=== PATIENT | male | born 1975 | race African-American/Black ===

== ENCOUNTER 2021-10-27 18:04 | Inpatient (IN) | payer BC ==
[~2021-10-27] VITALS: Ht 175.3 cm; Wt 129.3 kg
[2021-10-27 18:26] VITALS: BP 184/123
[2021-10-27] MEDS ORDERED: CARV25TA PO (18:52)
[2021-10-27] MEDS ORDERED: METF500T17 PO (18:52)
[2021-10-27] MEDS ORDERED: VALS320T2 PO (18:52)
[2021-10-27] MEDS ORDERED: COREG PO SCH ×2 (19:00→21:00)
--- NOTE | 2021-10-27 19:19 | PCM.HP ---
History of Present Illness Reason for Visit: (1) Hypertensive emergency ICD Code: I16.1 - Hypertensive emergency SNOMED: 130841731283883 Hx of Present Illness Julián is a very pleasant 46-year-old gentleman who presented today with headache which upon evaluation in outside ER was found to be secondary to hypertensive emergency. The patient's blood pressure fell after administration of IV hydralazine and labetalol, and the patient was started on Heparin drip based upon minute elevation in his troponin. He was transferred here for ongoing management whereupon interview revealed that the patient had been out of his usual Coreg 25 and valsartan 320 for several weeks the likely explanation for the patient's hypertension. He reported that prior to running out he had been compliant with all medications and had felt well until the last 24 hours prior to his presentation at the outside ER. At the time of my interview, the patient is resting comfortably, and reports that his headache is gone, and also states that he has never had shortness of breath or chest pain during this entire ordeal. Review of Systems Other Complete review of systems is negative except as per HPI Scheduled Carvedilol 25MG (Coreg 25MG), 25 MG PO DAILY24, (Reported) Metformin Hcl (Metformin Hcl), 1 TAB PO BID, (Reported) Valsartan (Diovan), 320 MG PO DAILY24, (Reported) VTE VTE Risk Score VTE Risk: Score 0-1 = Low Risk (Aggressive mobilization; early ambulation; no VTE prophylaxis required) Score 2: Moderate Risk (Intermittent/Pneumatic Compression Device OR Lovenox/Heparin/Coumadin) Score 3-4: High Risk (Intermittent/Pneumatic Compression Device AND Lovenox/Heparin/Coumadin) Score > or =5: Highest Risk (Intermittent/Pneumatic Compression Device AND Lovenox/Heparin/Coumadin) Exam Vital Signs Vital Signs Date Time Temp Pulse Resp B/P (MAP) Pulse Ox O2 Delivery O2 Flow Rate FiO2 10/27/21 18:26 98.9 121 17 184/123 (143) 98 10/27/21 17:30 Room Air 21 General Appearance: Alert, Oriented X3, Cooperative HEENT: Atraumatic, PERRLA, EOMI Respiratory: Clear to auscultation, Normal air movement Cardiovascular: Regular rate, Normal S1, Normal S2 Abdominal: Normal bowel sounds, Soft, No tenderness Extremities: No clubbing, No cyanosis, No edema Skin: No rash, No breakdown Neuro: Normal gait, Normal speech, Strength at 5/5 X4 ext Psych/Mental Status: Mental status NL, Mood NL Assessment/Plan Assessment/Plan Problems: (1) HTN (hypertension) Status: Chronic Assessment & Plan: Previously well controlled on prior dose of valsartan 320 and Coreg 25 twice daily, will resume these medications this evening. ICD Code: I10 - Essential (primary) hypertension SNOMED: 95842034 (2) T2DM (type 2 diabetes mellitus) Status: Chronic Assessment & Plan: On Metformin 500 twice daily at home, Does not usually check his sugars, so hemoglobin A1c is pending. We will hold Metformin while inpatient and resume upon discharge if it appears to be sufficient ICD Code: E11.9 - Type 2 diabetes mellitus without complications SNOMED: 98795023 (3) CAD (coronary artery disease) Status: Chronic Assessment & Plan: No sign of ACS, troponin elevation neuro observed at outside ER is almost certainly secondary to leak due to hypertensive emergency, will continue to trend troponin but no call for heparin drip at this time. Will consider treatment if his troponins rise over the following 6 to 8 hours. ICD Code: I25.10 - Atherosclerotic heart disease of [place] coronary artery without angina pectoris SNOMED: 41073891 (4) Hypertensive emergency Status: Acute Assessment & Plan: Secondary to running out of his medications, initial blood pressure was in the 210s systolic, responded to IV labetalol and hydralazine, at this time he is in the 180s systolic, resuming his home Coreg and valsartan. ICD Code: I16.1 - Hypertensive emergency SNOMED: [id number] BERNIE AREVALO MD Oct 27, 2021 19:19
[2021-10-27 20:54] VITALS: BP 185/111
[2021-10-27] MEDS: HUMALOG SQ SCH (21:45)
[2021-10-27] MEDS ORDERED: APRESOLINE IV ONE (22:00)
[2021-10-27] MEDS ORDERED: TYLENOL PO ONE (22:00)
[2021-10-27 22:43] LABS: BASOPHIL % 0.2 % (0.0-0.2); LYMPHOCYTES # 0.77 10^3/uL1 (1.0-4.8); LYMPHOCYTES % 16.5 % (24.0-44.0); MEAN CORP HGB 31.9 pg (26-34); MONOCYTES # 0.8 10^3/uL (0.3-0.8); MONOCYTES % 17.5 % (5.0-12.0); NEUTROPHIL # 3.1 10^3/uL (1.8-7.7); NEUTROPHILS % 65.4 % (41.0-85.0); PLATELET COUNT 158 10^3/uL (150-400); RED CELL DISTRIBUTION WIDTH 11.9 % (11.5-14.5)
[2021-10-27 22:53] LABS: CARBON DIOXIDE 24.1 mmol/L (20.0-32)
[2021-10-28 00:16] VITALS: BP 158/96
[2021-10-28] MEDS ORDERED: ZOFRAN IV PRN (00:30)
[2021-10-28] MEDS ORDERED: APRESOLINE IV PRN (00:30)
[2021-10-28] MEDS: LOVENOX SQ SCH ×2 (02:16→08:40)
[2021-10-28 05:10] VITALS: BP 161/93
[2021-10-28] MEDS ORDERED: COREG ONE (06:10)
[2021-10-28] MEDS ORDERED: TYLENOL PO ONE (06:11)
[2021-10-28] MEDS: COREG PO SCH ×2 (06:12→21:00)
[2021-10-28] MEDS: TYLENOL PO PRN ×2 (06:12→21:00)
[2021-10-28 06:28] LABS: CARBON DIOXIDE 20.9 mmol/L (20.0-32)
[2021-10-28 07:05] LABS: BASOPHIL % 0.4 % (0.0-0.2); LYMPHOCYTES # 1.05 10^3/uL1 (1.0-4.8); LYMPHOCYTES % 21.6 % (24.0-44.0); MEAN CORP HGB 32.1 pg (26-34); MONOCYTES # 0.8 10^3/uL (0.3-0.8); MONOCYTES % 16.3 % (5.0-12.0); NEUTROPHILS % 61.3 % (41.0-85.0); PLATELET COUNT 137 10^3/uL (150-400)
[2021-10-28] MEDS: HUMALOG SQ SCH ×4 (08:00→21:00)
[2021-10-28] MEDS: COZAAR PO SCH (09:29)
[2021-10-28 09:41] VITALS: BP 147/93
[2021-10-28 11:50] VITALS: BP 149/104
--- NOTE | 2021-10-28 13:14 | NUR ---
DISCHARGE PLANNING CM VISITED WITH PATIENT OVER INTERCOM. PATIENT CURRENTLY [email or web address] AND IS FROM [facility]. PATIENT IND WITH ALL ADL AND HIS LAST PCP AND HE IS GOING TO GET ANOTHER PCP IN HIS HOME AREA. PATIENT CURRENTLY WORKS DAILY FOR [employer] AND HIS TRUCK IS IN [place]. PATIENT PLANS TO DISCHARGE HOME TO SELF CARE AFTER DISCHARGE AND DENIES ANY NEEDS OF ASSISTANCE FROM CM. PATIENT REPORTS THAT HE SPOKE TO HIS BOSS THIS MORNING AND THEY WILL ARRANGE FOR HIM TO HAVE TRANSPORTATION BACK TO HIS TRUCK AFTER DISCHARGE AND PATIENT DENIES ANY NEED FOR ASSISTANCE AFTER DISCHARGE FROM CM.
--- NOTE | 2021-10-28 14:12 | PRM.PN ---
Subjective Subjective Date: Oct 28, 2021 Time: 09:00 Subjective Patient still having headache but less than yesterday. Blood pressure still elevated in spite of losartan, carvedilol and as needed hydralazine. Latest troponin is elevated. Patient continues to deny chest pain. Review of Systems Constitutional: Weakness Cardiovascular: No: Chest Pain Neurological: Weakness, Other (Headache) Allergies: Coded Allergies: No Known Allergies (Unverified , 10/27/21) Scheduled Carvedilol 25MG (Coreg 25MG), 25 MG PO DAILY24, (Reported) Metformin Hcl (Metformin Hcl), 1 TAB PO BID, (Reported) Valsartan (Diovan), 320 MG PO DAILY24, (Reported) Objective Vitals and I/O Vital Sign - Last 24 Hours 10/27/21 10/27/21 10/27/21 10/27/21 17:30 18:26 20:54 22:15 Temp 98.9 102.9 Pulse 118 121 120 120 Resp 17 18 B/P (MAP) 184/123 (143) 185/111 (135) 185/111 Pulse Ox 97 98 94 O2 Delivery Room Air Room Air FiO2 21 10/28/21 10/28/21 10/28/21 10/28/21 00:16 04:49 05:10 06:12 Temp 101.2 101.0 Pulse 114 116 116 Resp 19 18 B/P (MAP) 158/96 (116) 161/93 (115) 161/93 Pulse Ox 94 95 O2 Delivery Room Air Room Air Room Air 10/28/21 10/28/21 10/28/21 10/28/21 07:12 07:28 09:29 09:41 Temp 98.5 Pulse 108 115 Resp 16 19 B/P (MAP) 161/93 147/93 (111) Pulse Ox 96 95 O2 Delivery Room Air Room Air FiO2 21 10/28/21 11:50 Temp 98.7 Pulse 97 Resp 19 B/P (MAP) 149/104 (119) O2 Delivery Room Air General: Alert, Oriented X3, Cooperative, mild distress HEENT: Atraumatic, PERRLA, EOMI Lungs: Clear to auscultation, Normal air movement Heart: Regular rate, Normal S1, Normal S2 Abdomen: Normal bowel sounds, Soft, No tenderness Extremities: No clubbing, No cyanosis, No edema Neuro: Normal gait, Normal speech, Strength at 5/5 X4 ext Psych/Mental Status: Mental status NL, Mood NL All Results(Lab/Rad) Laboratory Tests Test 10/27/21 20:44 10/27/21 22:25 10/28/21 00:05 10/28/21 06:03 Bedside Glucose 339 White Blood Count 4.7 10^3/uL 4.9 10^3/uL Red Blood Count 5.14 10^6/uL 5.63 10^6/uL Hemoglobin 16.4 g/dL 18.1 g/dL Hematocrit 47.9 % 52.3 % Mean Corpuscular Volume 93.2 fL 92.9 fL Mean Corpuscular Hemoglobin 31.9 pg 32.1 pg Mean Corpuscular Hemoglobin Concent 34.2 g/dL 34.6 g/dL Red Cell Distribution Width 11.9 % 12.0 % Platelet Count 158 10^3/uL 137 10^3/uL Mean Platelet Volume 11.8 fL 11.9 fL Neutrophils (%) (Auto) 65.4 % 61.3 % Lymphocytes (%) (Auto) 16.5 % 21.6 % Monocytes (%) (Auto) 17.5 % 16.3 % Neutrophils # (Auto) 3.1 10^3/uL 3.0 10^3/uL Lymphocytes # (Auto) 0.77 10^3/uL1 1.05 10^3/uL1 Monocytes # (Auto) 0.8 10^3/uL 0.8 10^3/uL Absolute Immature Granulocyte (auto 0.02 10^3 u/L 0.02 10^3 u/L Absolute Eosinophils (auto) 0.0 10^3/uL 0.0 10^3/uL Immature Granulocytes % 0.40 % 0.40 % Eosinophils % 0.0 % 0.0 % Basophils % 0.2 % 0.4 % Basophils # 0.0 10^3/uL 0.0 10^3/uL Sodium Level 132 mmol/L 132 mmol/L Potassium Level 4.0 mmol/L 3.8 mmol/L Chloride Level 98.0 mmol/L 99.0 mmol/L Carbon Dioxide Level 24.1 mmol/L 20.9 mmol/L Glucose Level 327 mg/dL 329 mg/dL Blood Urea Nitrogen 13 mg/dL 12 mg/dL Creatinine 1.34 mg/dL 1.28 mg/dL Calcium Level 8.5 mg/dL 8.8 mg/dL Anion Gap 13.9 15.9 Estimated GFR () 69.4 73.2 Est GFR (CKD-EPI)(Non-Afr [place]) 57.4 60.5 BUN/Creatinine Ratio 9.0 9.0 Hemoglobin A1c 10.2 % Troponin I High Sensitivity 538 ng/L 518 ng/L 620 ng/L Current Medications Medications (Trade) Dose Ordered Sig/Garrick Route PRN Reason Start Time Stop Time Status Last Admin Dose Admin Carvedilol (Coreg) 25 mg DAILY24 PO 10/27/21 19:00 10/27/21 18:59 DC Losartan Potassium (Cozaar) 100 mg DAILY PO 10/28/21 09:00 11/27/21 08:59 10/28/21 09:29 Carvedilol (Coreg) 25 mg HS PO 10/27/21 21:00 10/27/21 19:12 DC Insulin Human Lispro (Humalog) 0-140 0 Units 141-200... ACHS SQ 10/27/21 21:00 11/26/21 20:59 10/28/21 12:04 Carvedilol (Coreg) 25 mg BID PO 10/28/21 09:00 11/27/21 08:59 10/28/21 06:12 Hydralazine HCl (Apresoline) 20 mg OT ONCE IV 10/27/21 22:00 10/27/21 22:01 DC 10/27/21 22:15 Acetaminophen (Tylenol) 650 mg OT ONCE PO 10/27/21 22:00 10/27/21 22:01 DC 10/27/21 22:15 Hydralazine HCl (Apresoline) 20 mg Q6HR PRN IV HYPERTENSION 10/28/21 00:30 11/27/21 00:29 Ondansetron HCl (Zofran) 4 mg Q6H PRN IV n/v 10/28/21 00:30 11/27/21 00:29 Enoxaparin Sodium (Lovenox) 40 mg BID SQ 10/28/21 02:00 11/27/21 01:59 10/28/21 08:40 Acetaminophen (Tylenol) 1,000 mg Q6HR PRN PO PAIN 1 - 3 10/28/21 06:00 11/27/21 05:59 10/28/21 06:12 Carvedilol (Coreg) 6.25 mg STK-MED ONCE .ROUTE 10/28/21 06:10 10/28/21 06:11 DC Acetaminophen (Tylenol) 500 mg STK-MED ONCE PO 10/28/21 06:11 10/28/21 06:11 DC Assessment/Plan Assessment/Plan Assessment/Plan Continue carvedilol, losartan Hydralazine as needed Aspirin 2D echo, cardiology consultation for elevated blood pressure and elevated troponin, evaluation further recommendations Sliding scale with insulin coverage DVT prophylaxis as appropriate Possible discharge in a.m. if patient condition stable and cleared by cardiology Problems: (1) T2DM (type 2 diabetes mellitus) Status: Chronic ICD Code: E11.9 - Type 2 diabetes mellitus without complications SNOMED: 60732820 (2) CAD (coronary artery disease) Status: Chronic ICD Code: I25.10 - Atherosclerotic heart disease of [place] coronary artery without angina pectoris SNOMED: 95278251 NASEEM PHIPPS MD Oct 28, 2021 14:12
[2021-10-28] MEDS: ASPIRIN PO SCH (15:04)
--- NOTE | 2021-10-28 15:18 | PCM.EKG ---
[facility] Test Date: 2021-10-28 Test Time: 15:13:27 Pat Name: HOWIE LEVY Department: Room: 309 A Gender: M Director Of [employer]: : 1975 Requested By: NASEEM PHIPPS Order Number: [id number] Reading MD: Measurements Intervals [place] Rate: 102 P: 76 TX: 167 QRS: 2 QRSD: 102 T: 256 QT: 359 QTc: 468 Interpretive Statements Sinus tachycardia Abnormal R-wave progression, early transition LVH with secondary repolarization abnormality Baseline wander in lead(s) V1 No previous ECG available for comparison Please click the below link to view image of tracing.
[2021-10-28 16:05] VITALS: BP 152/98
[2021-10-28 19:57] VITALS: BP 118/70
[2021-10-29 00:30] VITALS: BP 115/68
[2021-10-29 06:00] VITALS: BP 168/101
[2021-10-29] MEDS: COREG PO SCH ×2 (06:13→21:08)
[2021-10-29] MEDS: HUMALOG SQ SCH ×4 (07:30→20:38)
[2021-10-29 08:00] VITALS: BP 171/98
[2021-10-29] MEDS: LANTUS SQ SCH ×2 (08:30→09:00)
[2021-10-29] MEDS: COZAAR PO SCH (08:40)
[2021-10-29] MEDS: ASPIRIN PO SCH (08:40)
[2021-10-29] MEDS: NORVASC PO SCH ×2 (08:40→09:00)
[2021-10-29] MEDS: LOVENOX SQ SCH (08:41)
[2021-10-29 12:00] VITALS: BP 133/88
--- NOTE | 2021-10-29 14:49 | PRM.PN ---
Subjective Subjective Date: Oct 29, 2021 Time: 09:00 Subjective Patient still feeling weak. Otherwise denies chest pain. Blood pressure remains elevated with diastolic more than 100. Blood glucose remains elevated more than 300. Hemoglobin A1c was more than 10. Probably patient will need ho me insulin. Will start the patient on long-acting insulin, diabetic teaching. I will add amlodipine. Review of Systems Constitutional: Weakness Cardiovascular: No: Chest Pain Neurological: Weakness, Other (Headache) Allergies: Coded Allergies: No Known Allergies (Unverified , 10/27/21) Scheduled Carvedilol 25MG (Coreg 25MG), 25 MG PO DAILY24, (Reported) Metformin Hcl (Metformin Hcl), 1 TAB PO BID, (Reported) Valsartan (Diovan), 320 MG PO DAILY24, (Reported) Objective Vitals and I/O Vital Sign - Last 24 Hours 10/28/21 10/28/21 10/28/21 10/29/21 16:05 19:57 21:00 00:30 Temp 98.7 101.1 98.9 Pulse 88 87 87 86 Resp 18 16 18 B/P (MAP) 152/98 (116) 118/70 (86) 118/70 115/68 (84) Pulse Ox 96 94 90 O2 Delivery Room Air Room Air O2 Flow Rate 95.00 10/29/21 10/29/21 10/29/21 10/29/21 00:35 06:00 06:13 08:40 Temp 98.7 Pulse 87 87 Resp 19 B/P (MAP) 168/101 (123) 168/101 168/101 Pulse Ox 93 O2 Delivery Room Air Room Air 10/29/21 10/29/21 08:40 09:00 Pulse 87 87 B/P (MAP) 168/101 168/101 Intake and Output 10/29/21 07:00 Intake Total 221 ml Balance 221 ml General: Alert, Oriented X3, Cooperative, mild distress HEENT: Atraumatic, PERRLA, EOMI Lungs: Clear to auscultation, Normal air movement Heart: Regular rate, Normal S1, Normal S2 Abdomen: Normal bowel sounds, Soft, No tenderness Extremities: No clubbing, No cyanosis, No edema Neuro: Normal gait, Normal speech, Strength at 5/5 X4 ext Psych/Mental Status: Mental status NL, Mood NL All Results(Lab/Rad) Laboratory Tests Test 10/27/21 20:44 10/27/21 22:25 10/28/21 00:05 10/28/21 06:03 Bedside Glucose 339 White Blood Count 4.7 10^3/uL 4.9 10^3/uL Red Blood Count 5.14 10^6/uL 5.63 10^6/uL Hemoglobin 16.4 g/dL 18.1 g/dL Hematocrit 47.9 % 52.3 % Mean Corpuscular Volume 93.2 fL 92.9 fL Mean Corpuscular Hemoglobin 31.9 pg 32.1 pg Mean Corpuscular Hemoglobin Concent 34.2 g/dL 34.6 g/dL Red Cell Distribution Width 11.9 % 12.0 % Platelet Count 158 10^3/uL 137 10^3/uL Mean Platelet Volume 11.8 fL 11.9 fL Neutrophils (%) (Auto) 65.4 % 61.3 % Lymphocytes (%) (Auto) 16.5 % 21.6 % Monocytes (%) (Auto) 17.5 % 16.3 % Neutrophils # (Auto) 3.1 10^3/uL 3.0 10^3/uL Lymphocytes # (Auto) 0.77 10^3/uL1 1.05 10^3/uL1 Monocytes # (Auto) 0.8 10^3/uL 0.8 10^3/uL Absolute Immature Granulocyte (auto 0.02 10^3 u/L 0.02 10^3 u/L Absolute Eosinophils (auto) 0.0 10^3/uL 0.0 10^3/uL Immature Granulocytes % 0.40 % 0.40 % Eosinophils % 0.0 % 0.0 % Basophils % 0.2 % 0.4 % Basophils # 0.0 10^3/uL 0.0 10^3/uL Sodium Level 132 mmol/L 132 mmol/L Potassium Level 4.0 mmol/L 3.8 mmol/L Chloride Level 98.0 mmol/L 99.0 mmol/L Carbon Dioxide Level 24.1 mmol/L 20.9 mmol/L Glucose Level 327 mg/dL 329 mg/dL Blood Urea Nitrogen 13 mg/dL 12 mg/dL Creatinine 1.34 mg/dL 1.28 mg/dL Calcium Level 8.5 mg/dL 8.8 mg/dL Anion Gap 13.9 15.9 Estimated GFR () 69.4 73.2 Est GFR (CKD-EPI)(Non-Afr [place] Islander) 57.4 60.5 BUN/Creatinine Ratio 9.0 9.0 Hemoglobin A1c 10.2 % Troponin I High Sensitivity 538 ng/L 518 ng/L 620 ng/L Current Medications Medications (Trade) Dose Ordered Sig/Garrick Route PRN Reason Start Time Stop Time Status Last Admin Dose Admin Carvedilol (Coreg) 25 mg DAILY24 PO 10/27/21 19:00 10/27/21 18:59 DC Losartan Potassium (Cozaar) 100 mg DAILY PO 10/28/21 09:00 11/27/21 08:59 10/28/21 09:29 Carvedilol (Coreg) 25 mg HS PO 10/27/21 21:00 10/27/21 19:12 DC Insulin Human Lispro (Humalog) 0-140 0 Units 141-200... ACHS SQ 10/27/21 21:00 11/26/21 20:59 10/28/21 12:04 Carvedilol (Coreg) 25 mg BID PO 10/28/21 09:00 11/27/21 08:59 10/28/21 06:12 Hydralazine HCl (Apresoline) 20 mg OT ONCE IV 10/27/21 22:00 10/27/21 22:01 DC 10/27/21 22:15 Acetaminophen (Tylenol) 650 mg OT ONCE PO 10/27/21 22:00 10/27/21 22:01 DC 10/27/21 22:15 Hydralazine HCl (Apresoline) 20 mg Q6HR PRN IV HYPERTENSION 10/28/21 00:30 11/27/21 00:29 Ondansetron HCl (Zofran) 4 mg Q6H PRN IV n/v 10/28/21 00:30 11/27/21 00:29 Enoxaparin Sodium (Lovenox) 40 mg BID SQ 10/28/21 02:00 11/27/21 01:59 10/28/21 08:40 Acetaminophen (Tylenol) 1,000 mg Q6HR PRN PO PAIN 1 - 3 10/28/21 06:00 11/27/21 05:59 10/28/21 06:12 Carvedilol (Coreg) 6.25 mg STK-MED ONCE .ROUTE 10/28/21 06:10 10/28/21 06:11 DC Acetaminophen (Tylenol) 500 mg STK-MED ONCE PO 10/28/21 06:11 10/28/21 06:11 DC Assessment/Plan Assessment/Plan Assessment/Plan Continue carvedilol, losartan Hydralazine as needed Aspirin Patient still feeling weak. Otherwise denies chest pain. Blood pressure r emains elevated with diastolic more than 100. Blood glucose remains elevated more than 300. Hemoglobin A1c was more than 10. Probably patient will need home insulin. Will start the patient on long-acting insulin, diabetic teaching. I will add amlodipine. Sliding scale with insulin coverage DVT prophylaxis as appropriate Possible discharge in a.m. if patient condition stable Problems: (1) Hypertensive emergency Status: Acute ICD Code: I16.1 - Hypertensive emergency SNOMED: 985668793170112 (2) T2DM (type 2 diabetes mellitus) Status: Chronic ICD Code: E11.9 - Type 2 diabetes mellitus without complications SNOMED: 44594341 (3) COVID-19 with cardiovascular comorbidity Status: Acute ICD Code: U07.1 - COVID-19; I25.10 - Atherosclerotic heart disease of [place] coronary artery without angina pectoris SNOMED: 86267207, [id number], [id number] NASEEM PHIPPS MD Oct 29, 2021 14:49
--- NOTE | 2021-10-29 15:08 | NUR ---
DISCHARGE PLANNING CM INFORMED THAT PATIENT'S [employer] IS ARRANGING AND UBER TOMORROW TO TRANSPORT PATIENT BACK TO HIS TRUCK IN [place]. NO FURTHER CM NEEDS NOTED.
[2021-10-29 15:43] VITALS: BP 156/105
--- NOTE | 2021-10-29 18:42 | NUR ---
REPORT REPORT TO ONCOMING SHIFT
[2021-10-29] MEDS: APRESOLINE PO SCH (21:08)
[2021-10-29 21:09] VITALS: BP 158/101
[2021-10-30 01:20] VITALS: BP 103/63
[2021-10-30] MEDS: TYLENOL PO PRN (01:28)
--- NOTE | 2021-10-30 01:55 | CNH ---
DATE OF CONSULTATION: 10/29/2021 DICTATOR NAME: MICHELLE FLEMING DO REASON FOR CONSULTATION: Hypertensive urgency/COVID 19 infection/elevated troponins. HISTORY OF PRESENT ILLNESS: This is a 46-year-old male who presented from an outside Emergency Room where he initially came in with headaches and was noted to be hypertensive. Apparently, he has been out of his blood pressure medications. Upon presentation, he was given IV hydralazine and labetalol and his blood pressure is currently 156/105. He was transferred to [facility] for evaluation. COVID test done at the outside hospital was positive. A consultation was placed to Cardiology Service for evaluation given his elevated troponins noted. PAST MEDICAL HISTORY: 1. Uncontrolled hypertension. 2. Type 2 diabetes mellitus. 3. Morbid obesity. PAST SURGICAL HISTORY: Noncontributory. ALLERGIES: He has no known drug allergies. MEDICATIONS: He takes at home: 1. Coreg 25 mg p.o. b.i.d. 2. Valsartan 320 mg p.o. every day. SOCIAL HISTORY: Negative x3. FAMILY HISTORY: Denies any family history of premature coronary artery disease or sudden cardiac . REVIEW OF SYSTEMS: As per HPI and as per previous records. All systems are reviewed and negative for interval change. PHYSICAL EXAMINATION: VITAL SIGNS: Blood pressure is 156/105, respiratory rate is 17, pulse is 90, temperature is 98.4, pulse oximetry 97% on room air. GENERAL: He is in no apparent distress, alert and oriented x3. HEENT: Normocephalic, atraumatic. Extraocular muscles intact. Pupils equally round, reactive to light and accommodation. CARDIAC: S1, S2. No gallops, murmurs, rubs, or clicks. LUNGS: Clear to auscultation bilaterally. No wheezing, rhonchi or rales. ABDOMEN: Soft, nontender, nondistended. Positive bowel sounds in all 4 quadrants. EXTREMITIES: No cyanosis, no clubbing, no edema, +2 pedal pulses palpable bilaterally. NEUROLOGIC: No neurological deficits. Sensation is intact. IMPRESSION: 1. Hypertensive urgency. 2. COVID-19 infection. 3. Elevated troponins due to hypertensive urgency and COVID-19 infection. 4. History of uncontrolled hypertension. 5. Type 2 diabetes mellitus. 6. Morbid obesity. RECOMMENDATIONS: This is a 46-year-old male who presented from an outside ER with hypertensive urgency and headaches. His blood pressure is currently slightly elevated. He takes Coreg 25 mg p.o. b.i.d. and has been started on losartan 100 mg p.o. every day by the hospitalist team. I am going to start him on hydralazine 100 mg p.o. b.i.d. for optimization of his blood pressure medications. I suspect his elevated troponin is due to hypertensive urgency as well as active COVID infection. No invasive cardiac workup is planned at this time. I doubt ACS. He denies any chest pain. EKG shows sinus tachycardia with left ventricular hypertrophy and secondary repolarization changes. If his blood pressure is well controlled in the morning, he can be discharged home from my standpoint. The patient is from [place] and would need to follow up with his primary care doctor in [place] for referral to a [facility]. He certainly would benefit from cardiac ischemic workup in the outpatient setting. We will sign off. Tracee PEARSON D.O. DR: KA/PUN TID: [id number] RECEIPT: [id number]
[2021-10-30 05:05] VITALS: BP 143/75
[2021-10-30 07:28] VITALS: BP 158/97
[2021-10-30] MEDS: HUMALOG SQ SCH ×2 (07:30→11:30)
[2021-10-30] MEDS: LOVENOX SQ SCH (09:02)
[2021-10-30] MEDS: COREG PO SCH (09:02)
[2021-10-30] MEDS: COZAAR PO SCH (09:02)
[2021-10-30] MEDS: NORVASC PO SCH (09:02)
[2021-10-30] MEDS: ASPIRIN PO SCH (09:02)
[2021-10-30] MEDS: APRESOLINE PO SCH (09:02)
[2021-10-30] MEDS: LANTUS SQ SCH (09:23)
[2021-10-30] MEDS ORDERED: ALCO1EAC MC (11:27)
[2021-10-30] MEDS ORDERED: NEED1DIS MC (11:27)
[2021-10-30] MEDS ORDERED: SYRI1DIS MC (11:27)
[2021-10-30] MEDS ORDERED: AMLO10TA4 PO (11:27)
[2021-10-30] MEDS ORDERED: METF500T17 PO (11:27)
[2021-10-30] MEDS ORDERED: INSU100V8 SQ (11:27)
[2021-10-30] MEDS ORDERED: CARV25TA PO (11:27)
[2021-10-30] MEDS ORDERED: VALS320T2 PO (11:27)
[2021-10-30 12:35] VITALS: BP 158/97
--- NOTE | 2021-10-30 13:32 | NUR ---
DISCHARGE PATIENT BEING DISCHARGED HOME AT THIS TIME IN STABLE CONDITION. PATIENT DENIES NEEDING ANY ADDITIONAL NEEDS AT THIS TIME. PATIENT WAS ASSISTED DOWNSTAIRS TO PRIVATE VEHICLE VIA WHEELCHAIR. RELINQUISHED CARE FOR PATIENT AT THIS TIME.
--- NOTE | 2021-10-30 13:32 | PRM.DC ---
Discharge Summary Date of Discharge: Oct 30, 2021 Time of Request to Discharge: 13:00 Hospital Course 46-year-old gentleman who presented today with headache which upon evaluation in outside ER was found to be secondary to hypertensive emergency. The patient's blood pressure fell after administration of IV hydralazine and labetalol, and the patient was started on Heparin drip based upon minute elevation in his troponin. He was transferred here for ongoing management whereupon interview revealed that the patient had been out of his usual Coreg 25 and valsartan 320 for several weeks the likely explanation for the patient's hypertension. He reported that prior to running out he had been compliant with all medications and had felt well until the last 24 hours prior to his presentation at the outside ER. At the time of my interview, the patient is resting comfortably, and reports that his headache is gone, and also states that he has never had shortness of breath or chest pain during this entire ordeal. Patient was started on blood pressure medications valsartan and carvedilol, patient also was placed on sliding scale with insulin coverage. Initial troponin was high, high-sensitivity, patient never had chest pain. High- sensitivity troponin trending start going down. Blood pressure remained elevated, amlodipine was added, blood glucose also remained high, patient started on 15 units. Today blood pressure is better with 150/90. Blood glucose remains high so we will go ahead and increase the insulin dose. Patient was instructed that he will will need to be on insulin After discharge. Diabetic teaching and insulin teaching regarding self administration was done prior to discharge. Patient advised to follow-up with a primary care physician in 1 to 2 weeks.Patient will be discharged home. Patient discharged in stable condition. Diet diabetic/heart healthy. Activity as tolerated. Patient was advised to continue self quarantine for another 7 days. Exam/Vitals Blood pressure 150/90, heart rate 70, respiratory rate 14, temperature 98.Oxygen saturation 98% on room air. General: Alert, Oriented X3 HEENT: Atraumatic, PERRLA Neck: Supple, No JVD Lungs: Clear to auscultation Heart: Regular rate, Normal S1, Normal S2 Abdomen: Normal bowel sounds, Soft, No tenderness Extremities: No clubbing, No cyanosis Skin: No rashes, No breakdown Neuro: Normal gait, Normal speech Psych/Mental Status: Mental status NL, Mood NL Scheduled Amlodipine Besylate (Norvasc), 10 MG PO DAILY Carvedilol 25MG (Coreg 25MG), 25 MG PO DAILY24 Insulin Glargine,Hum.rec.anlog (Lantus), 20 UNIT SQ DAILY Metformin Hcl (Metformin Hcl), 1 TAB PO BID Valsartan (Diovan), 320 MG PO DAILY24 Durable Medical Equipment Alcohol Swab Cap (Magen Disinfectant Cap), [facility], (DME) [place], Insulin Disposable (Novofine 32), [facility], (DME) [place] W-Ndl,Disp,Insul,0.5ML (Insulin Syringe), [facility], (DME) Sepsis Evaluation @ Discharge 10/30/21 03:45 Plan Problems: (1) Hypertensive emergency Status: Acute ICD Code: I16.1 - Hypertensive emergency SNOMED: 355224502236914 (2) COVID-19 with cardiovascular comorbidity Status: Acute ICD Code: U07.1 - COVID-19; I25.10 - Atherosclerotic heart disease of [place] coronary artery without angina pectoris SNOMED: 19606631, [id number], [id number] (3) T2DM (type 2 diabetes mellitus) Status: Chronic ICD Code: E11.9 - Type 2 diabetes mellitus without complications SNOMED: 60842222 Discharge Date: Oct 30, 2021 Discharge Disposition: Stable Plan 46-year-old gentleman who presented today with headache which upon evaluation in outside ER was found to be secondary to hypertensive emergency. The patient's blood pressure fell after administration of IV hydralazine and labetalol, and the patient was started on Heparin drip based upon minute elevation in his troponin. He was transferred here for ongoing management whereupon interview revealed that the patient had been out of his usual Coreg 25 and valsartan 320 for several weeks the likely explanation for the patient's hypertension. He reported that prior to running out he had been compliant with all medications and had felt well until the last 24 hours prior to his presentation at the outside ER. At the time of my interview, the patient is resting comfortably, and reports that his headache is gone, and also states that he has never had shortness of breath or chest pain during this entire ordeal. Patient was started on blood pressure medications valsartan and carvedilol, patient also was placed on sliding scale with insulin coverage. Initial troponin was high, high-sensitivity, patient never had chest pain. High- sensitivity troponin trending start going down. Blood pressure remained elevated, amlodipine was added, blood glucose also remained high, patient started on 15 units. Today blood pressure is better with 150/90. Blood glucose remains high so we will go ahead and increase the insulin dose. Patient was instructed that he will will need to be on insulin After discharge. Diabetic teaching and insulin teaching regarding self administration was done prior to discharge. Patient advised to follow-up with a primary care physician in 1 to 2 weeks.Patient will be discharged home. Patient discharged in stable condition. Diet diabetic/heart healthy. Activity as tolerated. Patient was advised to continue self quarantine for another 7 days. NASEEM PHIPPS MD Oct 30, 2021 13:32
== END 2021-10-30 12:35 | disposition home or self-care (01) | DRG 304 ==
LOC: EEVIPCON 18:04 → MS 18:04
PROVIDERS: ADMIT Surgery; ATTEND Surgery
DX: I16.1 Hypertensive emergency (principal); U07.1 COVID-19; I10 Essential (primary) hypertension; I25.10 Atherosclerotic heart disease of native coronary artery without angina pectoris; E11.9 Type 2 diabetes mellitus without complications; R77.8 Other specified abnormalities of plasma proteins; E66.01 Morbid (severe) obesity due to excess calories
CPT/HCPCS: 36415; 80048; 82948; 83036; 84484; 85025; 93005; G0378; J0360; J1650; J3490